=== PATIENT | female | born 1955 | race Caucasian/White ===

== ENCOUNTER 2020-09-26 12:37 | Emergency (ER) | payer OTHER ==
[2020-09-26 13:00] VITALS: RESP 18; TEMP 98.3
[2020-09-26 14:41] LABS: Basophils # (A) 0.1 k/uL (0-0.2); Basophils % (A) 1 %; Eosinophils # (A) 0.1 k/uL (0-0.7); Eosinophils % (A) 2 %; HCT 41.5 % (34.0-46.0); Lymphocytes # (A) 1.9 k/uL (1.0-4.8); Lymphocytes % (A) 25 %; MCH 29.4 pg (25.0-35.0); MCHC 33.7 g/dL (31.0-37.0); MCV 87.2 fL (80.0-100.0); Mean Platelet Volume 6.5; Monocytes # (A) 0.3 k/uL (0-1.0); Monocytes % (A) 4 %; Neutrophils % (A) 67 %; Platelet Count 287 k/uL (150-450); RBC 4.76 m/uL (3.80-5.40); RDW 12.6 % (11.5-15.5); WBC 7.6 k/uL (3.8-10.6)
[2020-09-26 14:51] LABS: INR 0.9 (<1.2); Partial Thromboplastin Time 23.4 sec (22.0-30.0); Prothrombin Time 9.6 sec (9.0-12.0)
--- NOTE | 2020-09-26 14:54 | XR ---
EXAMINATION TYPE: XR chest 2V DATE OF EXAM: 09/26/2020 COMPARISON: NONE TECHNIQUE: PA and lateral views submitted. HISTORY: Chest pain FINDINGS: The lungs are clear and there is no pneumothorax, pleural effusion, or focal pneumonia. Heart size upper limits of normal. Mild hypertrophic change of the spine. No overt failure. Arthropathy of the s houlders. Chronic right-sided rib deformity noted. IMPRESSION: 1. No acute process.
[2020-09-26 15:01] LABS: Albumin 4.4 g/dL (3.5-5.0); Calcium 9.7 mg/dL (8.4-10.2); Magnesium 2.1 mg/dL (1.6-2.3); Potassium 4.7 mmol/L (3.5-5.1); Total Bilirubin 0.6 mg/dL (0.2-1.3); Total Protein 7.7 g/dL (6.3-8.2)
--- NOTE | 2020-09-26 16:03 | ED ---
Dizziness HPI - General Chief Complaint: Dizziness Stated Complaint: Dizziness Time Seen by Provider: 09/26/20 13:31 Source: patient Mode of arrival: ambulatory Limitations: no limitations - History of Present Illness Initial Comments: [age] female presenting today for chief complaint of lightheadedness nausea. Patient states the past 2 days when she goes from sitting to standing she has lightheaded sensation. Patient denies any chest pain shortness of breath jaw arm back pain abdominal pain. Patient states today this occurred again and she had some nausea but she states this resolved. She again states she had no chest pain or shortness of breath she states she had no syncopal episodes. Patient denies any headache she denies sensation of room was spinning ringing in the ears neck pain. Patient denies any sensation of feeling off balance. Patient states this is not like vertigo does not change with movement of the head. Immediately systems negative upon arrival patient appears well nontoxic no acute distress - Related Data Home Medications Medication Instructions Recorded Confirmed No Known Home Medications 09/26/20 09/26/20 Allergies Allergy/AdvReac Type Severity Reaction Status Date / Time No Known Allergies Allergy Verified 09/26/20 15:53 Review of Systems ROS Statement: Those systems with pertinent positive or pertinent negative responses have been documented in the HPI. ROS Other: All systems not noted in ROS Statement are negative. Past Medical History Past Medical History: No Reported History History of Any Multi-Drug Resistant Organisms: None Reported Past Surgical History: No Surgical Hx Reported Past Psychological History: No Psychological Hx Reported Smoking Status: Former smoker Past Alcohol Use History: None Reported Past Drug Use History: None Reported General Exam - General Exam Comments Initial Comments: General: The patient is awake and alert, in no distress Eye: +3 mm pupils are equal, round and reactive to light, extra-ocular movements are intact. No nystagmus. There is normal conjunctiva bilaterally. No signs of icterus. Ears, nose, mouth and throat: There are moist mucous membranes and no oral lesions. Neck: The neck is supple, there is no tenderness or JVD. Cardiovascular: There is a regular rate and rhythm. No murmur, rub or gallop is appreciated. Respiratory: Lungs are clear to auscultation, respirations are non-labored, breath sounds are equal. No wheezes, stridor, rales, or rhonchi. Gastrointestinal: Soft, non-distended, non-tender abdomen without masses or organomegaly noted. There is no rebound or guarding present. Musculoskeletal: Normal ROM, no tenderness. Strength 5/5. Sensation intact. Radial and DP pulses equal bilaterally 2+. Neurological: A&O x 3. CN II-XII intact, There are no obvious motor or sensory deficits. Coordination appears grossly intact. Speech is normal. Skin: Skin is warm and dry and no rashes or lesions are noted. No calf pain, no LE edema or calf swelling Psychiatric: Cooperative, appropriate mood & affect, normal judgment. Limitations: no limitations Course Vital Signs 09/26/20 09/26/20 09/26/20 12:55 14:00 15:00 Temperature 98.3 F Pulse Rate 84 82 Pulse Rate [ Transformer Maker ] Respiratory 18 18 18 Rate Blood Pressure 162/80 154/81 Blood Pressure [Left Arm Sitting] Blood Pressure [Left Arm Standing] Blood Pressure [Left Arm Supine] O2 Sat by Pulse 98 98 Oximetry 09/26/20 09/26/20 09/26/20 15:38 16:00 16:10 Temperature 98.3 F Pulse Rate 79 79 Pulse Rate [ 80 Transformer Maker ] Respiratory 18 18 Rate Blood Pressure 141/77 141/77 Blood Pressure 147/74 [Left Arm Sitting] Blood Pressure 133/94 [Left Arm Standing] Blood Pressure 154/73 [Left Arm Supine] O2 Sat by Pulse 98 98 Oximetry Medical Decision Making - Medical Decision Making Labs stable. Troponin (-) No abdominal or chest pain. CXR clear. No current symptoms. Orthostatics (-). Glucose WNL. No ischemic findings on EKG> discussed case with Dr. wong who is agreeable to care plan and discharge. - Lab Data Result diagrams: 09/26/20 14:30 09/26/20 14:30 Lab Results 09/26/20 09/26/20 09/26/20 Range/Units 14:30 14:30 14:30 WBC 7.6 (3.8-10.6) k/uL RBC 4.76 (3.80-5.40) m/uL Hgb 14.0 (11.4-16.0) gm/dL Hct 41.5 (34.0-46.0) % MCV 87.2 (80.0-100.0) fL MCH 29.4 (25.0-35.0) pg MCHC 33.7 (31.0-37.0) g/dL RDW 12.6 (11.5-15.5) % Plt Count 287 (150-450) k/uL MPV 6.5 Neutrophils % 67 % Lymphocytes % 25 % Monocytes % 4 % Eosinophils % 2 % Basophils % 1 % Neutrophils # 5.0 (1.3-7.7) k/uL Lymphocytes # 1.9 (1.0-4.8) k/uL Monocytes # 0.3 (0-1.0) k/uL Eosinophils # 0.1 (0-0.7) k/uL Basophils # 0.1 (0-0.2) k/uL PT 9.6 (9.0-12.0) sec INR 0.9 (<1.2) APTT 23.4 (22.0-30.0) sec Sodium 139 (137-145) mmol/L Potassium 4.7 (3.5-5.1) mmol/L Chloride 108 H (98-107) mmol/L Carbon Dioxide 25 (22-30) mmol/L Anion Gap 6 mmol/L BUN 16 (7-17) mg/dL Creatinine 0.94 (0.52-1.04) mg/dL Est GFR (CKD-EPI)AfAm 75 (>60 ml/min/1.73 sqM) Est GFR (CKD-EPI)NonAf 65 (>60 ml/min/1.73 sqM) Glucose 92 (74-99) mg/dL Calcium 9.7 (8.4-10.2) mg/dL Magnesium 2.1 (1.6-2.3) mg/dL Total Bilirubin 0.6 (0.2-1.3) mg/dL AST 25 (14-36) U/L ALT 18 (4-34) U/L Alkaline Phosphatase 84 (38-126) U/L Troponin I (0.000-0.034) ng/mL Total Protein 7.7 (6.3-8.2) g/dL Albumin 4.4 (3.5-5.0) g/dL 09/26/20 Range/Units 14:30 WBC (3.8-10.6) k/uL RBC (3.80-5.40) m/uL Hgb (11.4-16.0) gm/dL Hct (34.0-46.0) % MCV (80.0-100.0) fL MCH (25.0-35.0) pg MCHC (31.0-37.0) g/dL RDW (11.5-15.5) % Plt Count (150-450) k/uL MPV Neutrophils % % Lymphocytes % % Monocytes % % Eosinophils % % Basophils % % Neutrophils # (1.3-7.7) k/uL Lymphocytes # (1.0-4.8) k/uL Monocytes # (0-1.0) k/uL Eosinophils # (0-0.7) k/uL Basophils # (0-0.2) k/uL PT (9.0-12.0) sec INR (<1.2) APTT (22.0-30.0) sec Sodium (137-145) mmol/L Potassium (3.5-5.1) mmol/L Chloride (98-107) mmol/L Carbon Dioxide (22-30) mmol/L Anion Gap mmol/L BUN (7-17) mg/dL Creatinine (0.52-1.04) mg/dL Est GFR (CKD-EPI)AfAm (>60 ml/min/1.73 sqM) Est GFR (CKD-EPI)NonAf (>60 ml/min/1.73 sqM) Glucose (74-99) mg/dL Calcium (8.4-10.2) mg/dL Magnesium (1.6-2.3) mg/dL Total Bilirubin (0.2-1.3) mg/dL AST (14-36) U/L ALT (4-34) U/L Alkaline Phosphatase (38-126) U/L Troponin I <0.012 (0.000-0.034) ng/mL Total Protein (6.3-8.2) g/dL Albumin (3.5-5.0) g/dL Disposition Clinical Impression: Lightheaded, Pre-syncope Disposition: HOME SELF-CARE Condition: Good Instructions (If sedation given, give patient instructions): Near Syncope (ED) Additional Instructions: Please use medication as discussed. Please follow-up with family doctor in the next 2 days, recommend outpatient stress testing. increase fluids. Please return to emergency room if the symptoms increase or worsen or for any other concerns. Is patient prescribed a controlled substance at d/c from ED?: No Referrals: Keiry Padron MD [Primary Care Provider] - 1-2 days Time of Disposition: 16:03
[2020-09-26 16:15] VITALS: BP 141/77; PULSE 79
== END 2020-09-26 16:15 | disposition home or self-care (01) ==
LOC: EC 12:37
DX: R42 Dizziness and giddiness (principal); R55 Syncope and collapse; Z87.891 Personal history of nicotine dependence
CPT/HCPCS: 36415; 71046; 80053; 83735; 84484; 85025; 85610; 85730; 93005; 99284

== ENCOUNTER → 2020-10-10 | Outpatient (CLI) | payer OTHER ==
--- NOTE | 2020-10-10 08:53 | US ---
EXAMINATION TYPE: US abdomen complete DATE OF EXAM: 10/10/2020 COMPARISON: NONE CLINICAL HISTORY: R10.11 RUQ Abdominal Pain. Difficult exam due to overlying bowel gas EXAM MEASUREMENTS: Liver Length: 14.7 cm Gallbladder Wall: 0.2 cm CBD: 0.4 cm Spleen: 9.6 cm Right Kidney: 9.0 x 3.6 x 3.7 cm Left Kidney: 9.8 x 4.9 x 4.1 cm Pancreas: Obscured by bowel gas Liver: Heterogeneous Gallbladder: wnl Evidence for sonographic Lo's sign: No CBD: wnl as visualized Spleen: wnl Right Kidney: No hydronephrosis or masses seen Left Kidney: No hydronephrosis or masses seen Upper IVC: wnl Abd Aorta: wnl The liver is heterogeneous. The intrahepatic portion of the IVC and proximal abdominal aorta are wit hin normal limits. There is no evidence of cholelithiasis. Common bile duct is unremarkable. Pancre as obscured by bowel gas. The spleen is unremarkable. Kidneys are symmetric and free of hydronephro sis. No renal lesions are seen. IMPRESSION: 1. Heterogeneous pattern to the liver is nonspecific can be associated with hepatic steatosis, diffus e hepatocellular disease, or hepatitis. Correlate clinically.
== END | disposition home or self-care (01) ==
LOC: RADUSWWP 08:23
PROVIDERS: ATTEND Internal Medicine
DX: R93.2 Abnormal findings on diagnostic imaging of liver and biliary tract (principal)
CPT/HCPCS: 76700

== ENCOUNTER → 2022-08-25 | Outpatient (CLI) | payer MEDICARE ==
--- NOTE | 2022-08-25 09:54 | XR ---
EXAMINATION TYPE: XR chest 2V DATE OF EXAM: 08/25/2022 COMPARISON: 09/26/2020 TECHNIQUE: PA and lateral views submitted. HISTORY: Cough FINDINGS: The lungs are clear and there is no pneumothorax, pleural effusion, or focal pneumonia. Heart size normal with no overt failure. Hypertrophic and degenerative changes spine. Artifact overlying the rig ht AC joint. Bilateral AC joint arthropathy. IMPRESSION: 1. No acute process.
== END | disposition home or self-care (01) ==
LOC: RADXRMAIN 09:33
PROVIDERS: ATTEND Otolaryngology
DX: R05.9 Cough, unspecified (principal)
CPT/HCPCS: 71046

== ENCOUNTER → 2024-06-27 | Outpatient (CLI) | payer MEDICARE ==
--- NOTE | 2024-06-27 10:00 | NM ---
EXAMINATION TYPE: NM hepatobiliary w CCK DATE OF EXAM: 06/27/2024 COMPARISON: NONE CLINICAL INDICATION: Female, 68 years old with history of R10.13 EPIGASTRIC PAIN; TECHNIQUE: After the intravenous administration of 5.2 mCi Tc 99m Mebrofenin hepatobiliary scintigrap hy is performed. Immediate images post injection. FINDINGS: There is satisfactory initial accumulation of tracer by the liver. The gallbladder is visualized wit hin 8 minutes. The small bowel activity is noted within 26 minutes. At one hour CCK was administere d, patient was injected with 2.1 mcg of Kinevac, and gallbladder ejection fraction is calculated at 9 6 %, elevated above the expected range. IMPRESSION: 1. No scintigraphic evidence for acute/chronic cholecystitis or biliary dyskinesia. 2. However, gallbladder ejection fraction is elevated at 96%. This may be seen in the setting of gall bladder hyperkinesis. [facility], , 06/27/2024 9:57 AM
== END | disposition home or self-care (01) ==
LOC: RADNMMAIN 07:02
PROVIDERS: ATTEND Surgery
DX: R10.13 Epigastric pain (principal)
CPT/HCPCS: 78227

== ENCOUNTER → 2024-07-09 | Day surgery (SDC) | payer MEDICARE ==
[~2024-07-09] MED LIST: LIDOCAINE 1% (10MG/ML) FOR IV START INTRADERMA PRN; LIDOCAINE 1% INJ 10MG/ML (20 ML MDV) ONE; PROPOFOL 10 MG/ML 20 ML VIAL IV ONE
[2024-07-09 09:13] VITALS: TEMP 98.1
[2024-07-09] MEDS: IV FLUID CONTINUATION 1,000 ML IV ONE (09:20)
[2024-07-09] MEDS: LACTATED RINGERS 1,000 ML IV SCH (09:21)
--- NOTE | 2024-07-09 09:52 | P.PCN ---
Date of Procedure: 07/09/24 Preoperative Diagnosis: Dysphagia Postoperative Diagnosis: Mild gastritis Mild duodenitis Procedure(s) Performed: EGD with biopsy Anesthesia: MAC Surgeon: Alonzo Izaguirre Pathology: other Condition: stable Disposition: same day Indications for Procedure: 68-year-old female presents today for upper endoscopy. She has sometimes difficulty swallowing phlegm and coughing this up. She has had workup by pulmonary and ENT and workup is being performed for GERD being the etiology as she has not had a diagnosis. Secondary to this, plan is for EGD. Risks, benefits alternatives were provided to the patient. All questions answered. Operative Findings: Mild gastritis Mild duodenitis otherwise normal esophagus no stricturing Description of Procedure: Patient was brought to the endoscopy suite and placed in left lateral decubitus position and adequate sedation was achieved using conscious sedation. A bite block was placed and an endoscope was placed in the oropharynx and advanced under endoscopic visualization. The endoscope was advanced through the esophagus into the stomach, through the gastric antrum and in through the pylorus. The third portion of the duodenum was visualized. The endoscope was then slowly withdrawn. The first portion of the duodenum was noted to have mild inflammatory changes. Biopsies were taken. The antrum was noted to have mild inflammatory changes. Biopsies were taken. The gastric body distended normally and the gastric folds appeared normal and flattened with insufflation. A retroflexed view of the fundus and GE junction revealed no significant hiatal hernia. The esophagus appeared endoscopically normal. Biopsies were taken of the GE junction. Excess air was removed and the scope was withdrawn and the procedure completed. The patient was then sent to postanesthesia care unit in stable condition.
[2024-07-09] MEDS: ALBUTEROL NEBULIZED 2.5 MG/3 ML INHALATION STA (10:07)
--- NOTE | 2024-07-09 10:48 | XR ---
EXAMINATION TYPE: XR chest 1V DATE OF EXAM: 07/09/2024 10:38 AM CLINICAL INDICATION: Female, 68 years old with history of PRODUCTIVE COUGH POST PROCEDURE; [facility] COMPARISON: Chest radiographs from 08/25/2022 TECHNIQUE: XR chest 1V Frontal view of the chest. FINDINGS: Lungs/Pleura: There is no evidence of pleural effusion, focal consolidation, or pneumothorax. Pulmonary vascularity: Unremarkable. Heart/mediastinum: Cardiomediastinal silhouette is enlarged. Musculoskeletal: No acute osseous pathology. Other findings: None IMPRESSION: No acute cardiopulmonary disease/process. [facility], , 07/09/2024 10:46 AM
[2024-07-09 10:56] VITALS: BP 131/68; PULSE 72; RESP 16
== END | disposition home or self-care (01) ==
LOC: ORWHC2ENDO 08:47
PROVIDERS: ATTEND Surgery
CPT/HCPCS: 43239; 71045; 88305

== ENCOUNTER → 2024-11-30 | Outpatient (CLI) | payer MEDICARE ==
[2024-11-30 15:21] LABS: ALT 16 U/L (8-44); AST 19 U/L (13-35); LDL Cholesterol,Calculated 126.4 mg/dL (0.0-131.0); VLDL Calculation 18.42 mg/dL (5.00-40.00)
== END | disposition home or self-care (01) ==
LOC: LABWHC1 09:36
PROVIDERS: ATTEND Internal Medicine Cardiovascular Disease
DX: E78.2 Mixed hyperlipidemia (principal)
CPT/HCPCS: 36415; 80061; 84450; 84460

== ENCOUNTER 2025-02-22 12:42 | Day surgery (SDC) | payer MEDICARE ==
[2025-02-20 14:02] VITALS: BMI 39.4
[~2025-02-22 12:42] MED LIST changes: +INDOCYANINE GREEN 25 MG VIAL IV PRN; -LIDOCAINE 1% (10MG/ML) FOR IV START INTRADERMA PRN; -LIDOCAINE 1% INJ 10MG/ML (20 ML MDV) ONE; +MIDAZOLAM 2 MG/2 ML VIAL IV PRN; -PROPOFOL 10 MG/ML 20 ML VIAL IV ONE
[2025-02-22] MEDS: IV FLUID CONTINUATION 1,000 ML IV ONE (12:56)
[2025-02-22] MEDS: ONDANSETRON 4 MG/2 ML VIAL IVP ONE (13:34)
[2025-02-22] MEDS: DEXAMETHASONE SOD PHOSPHATE 4 MG/ML 1 ML VIAL IV ONE (13:34)
[2025-02-22] MEDS: HEPARIN SODIUM,PORCINE 5,000 UNIT/ML 1 ML VIAL SQ PRN (13:35)
[2025-02-22] MEDS: INDOCYANINE GREEN 25 MG VIAL IV PRN (13:42)
[2025-02-22] MEDS: LACTATED RINGERS 1,000 ML IV SCH (13:49)
[2025-02-22] MEDS ORDERED: SUCCINYLCHOLINE CHLORIDE 200 MG/10 ML VIAL IV ONE (13:55)
[2025-02-22] MEDS ORDERED: LIDOCAINE 1% INJ 10MG/ML (20 ML MDV) ONE (13:55)
[2025-02-22] MEDS ORDERED: PROPOFOL 10 MG/ML 20 ML VIAL IV ONE (13:55)
[2025-02-22] MEDS ORDERED: MIDAZOLAM 2 MG/2 ML VIAL ONE (13:55)
[2025-02-22] MEDS ORDERED: NEOSTIGMINE 1 MG/ML 10 ML VIAL ONE (13:55)
[2025-02-22] MEDS ORDERED: GLYCOPYRROLATE 0.2 MG/ML 2 ML VIAL ONE (13:55)
[2025-02-22] MEDS ORDERED: ROCURONIUM 10 MG/ML (5 ML VIAL) IV ONE (13:55)
[2025-02-22] MEDS ORDERED: fentaNYL (PF) 50 MCG/ML 2 ML AMP ONE (13:55)
[2025-02-22] MEDS ORDERED: ePHEDrine 50 MG/ML 1 ML VIAL ONE (13:55)
[2025-02-22] MEDS: ceFAZolin 2 GM in DEXTROSE 5% IN WATER 50 ML IVPB PRN (14:00)
[2025-02-22] MEDS: BUPIVACAINE (PF) 0.25% 30 ML VIAL SQ ONE (14:17)
--- NOTE | 2025-02-22 15:02 | P.OP ---
Date of Procedure: 02/22/25 Preoperative Diagnosis: Biliary dyskinesia Postoperative Diagnosis: Biliary dyskinesia Procedure(s) Performed: Robotic Cholecystectomy Anesthesia: CHRISTO Surgeon: Alonzo Izaguirre Pathology: other (Gallbladder and contents) Condition: stable Disposition: same day Indications for Procedure: 61-year-old female presents to the surgery clinic with complaint of epigastric and right upper quadrant pain for many years. She is stated that she has been told in the past that she has gallbladder issues. Workup was once again performed with HIDA scan showing ejection fraction of 96% with hyperkinesia of the gallbladder. Patient has opted for surgical intervention. She is aware that surgical outcomes with biliary hyperkinesia have mixed results in literature. I did discuss this in depth with the patient's. Risks, benefits and alternatives were provided to the patient. All questions answered prior to attending the operating suite. Operative Findings: Distended gallbladder with some omental adhesions Description of Procedure: Patient was brought to the operating suite and placed in supine position on the operating table. Sedation was provided by anesthesia and the patient underwent endotracheal intubation. The patient was then prepped and draped in regular sterile fashion. An infraumbilical incision was made and dissection was carried to the fascia. The fascia was incised and an 8 mm trocar was placed. Pneumoperitoneum was achieved. The patient was then placed in appropriate position. 2 additional 8 mm trocars were placed in the right upper quadrant and 1 in the left upper quadrant. Robot was then docked. The gallbladder was then grasped and retracted superiorly and laterally. The gallbladder appeared distended with omental adhesions. Dissection was carried along the infundibulum towards the cystic duct and the cystic duct was skeletonized. The cystic artery was similarly skeletonized and critical view was obtained. ICG was used to confirm anatomy. 2 clips were placed proximally on the cystic duct and 1 was placed distally and the cystic duct was ligated. Similarly, 2 clips were placed proximally on the cystic artery and 1 was placed distally and the cystic artery was ligated. Cautery was then used to dissect the gallbladder off of the gallbladder fossa. The gallbladder was then placed in an Endo Catch bag and removed from the abdomen from the infraumbilical incision site. []. Hemostasis was noted to be maintained. No bile leakage was noted. The infraumbilical fascial incision was closed under direct visualization using an 0 Vicryl suture and Maico-Cipriano device. Pneumoperitoneum was released. All ports removed from the abdomen. All port sites were closed with 4-0 Vicryl subcuticular suture. Sterile dressing was applied. The patient was taken to postanesthesia care unit in stable condition. Sponge and instrument count correct x 2.
[2025-02-22 15:08] VITALS: TEMP 97.2
[2025-02-22] MEDS: HYDROmorphone 0.5 MG/0.5 ML SYRINGE IVP PRN (15:41)
[2025-02-22 16:20] VITALS: RESP 16
[2025-02-22] MEDS: LACTATED RINGERS 1,000 ML IV ONE (17:22)
[2025-02-22 17:25] VITALS: BP 152/65; PULSE 60
== END 2025-02-22 17:56 | disposition home or self-care (01) ==
LOC: OR 12:42
PROVIDERS: ATTEND Surgery
DX: K81.1 Chronic cholecystitis (principal); I10 Essential (primary) hypertension; Z79.899 Other long term (current) drug therapy; Z87.891 Personal history of nicotine dependence
CPT/HCPCS: 47562; S2900; 88304